=== PATIENT | female | born 1985 | race Caucasian/White ===

== ENCOUNTER 2021-08-30 08:53 | Outpatient (REF) | payer BC, SELFPAY ==
[2021-08-30 11:16] LABS: MANUAL DIFF FLAG NO
[2021-08-30 11:21] LABS: Basophils Percent Auto 0.8 % (0-2); Eosinophils Absolute Auto 0.2 X10*3/uL (0.0-0.4); Hematocrit 38.8 % (37.0-47.0); Hemoglobin 12.5 g/dl (12.0-16.0); Imm Gran Abs Auto 0.01 X10*3/uL (0.00-0.03); Imm Gran Pct Auto 0.3 % (0.0-0.4); Lymphocytes Absolute Auto 1.5 X10*3/uL (1.2-4.9); Lymphocytes Percent Auto 39.4 % (20-40); Mean Corpuscular HGB Conc 32.2 g/dl (31.0-35.0); Mean Corpuscular Hemoglobin 28.9 pg (27.0-33.0); Mean Corpuscular Volume 89.8 fL (80.0-98.0); Mean Platelet Volume 12.1 fL (9.4-12.3); Monocytes Absolute Auto 0.3 X10*3/uL (0.1-1.2); Neutrophils Absolute Auto 1.8 x10*3/uL (2.0-8.3); Neutrophils Percent Auto 47.5 % (45-73); Platelet Count 219 X10*3/uL (160-400); Red Blood Count 4.32 X10*6/uL (4.20-5.50); Red Cell Distribution Width 12.2 % (11.0-16.0); White Blood Count 3.7 X10*3/uL (4.8-10.8)
[2021-08-30 11:48] LABS: Alanine Aminotransferase 18 U/L (0-31); Albumin Level 4.4 g/dL (3.5-5.0); Alkaline Phosphatase 38 U/L (39-117); Anion Gap 12 (12-20); Aspartate Amino Transferase 16 U/L (5-31); Bilirubin Total 0.4 mg/dL (0.0-1.0); Blood Urea Nitrogen 14 mg/dL (9-16); Carbon Dioxide 24 mmol/L (22-29); Chloride 107 mmol/L (96-108); Cholesterol 224 mg/dL; Estimated Glomerular Filt Rate > 60; Glucose Fasting 87 mg/dL (60-99); HDL Cholesterol 65 mg/dL; LDL Cholesterol Calculated 143 mg/dl; Potassium 4.6 mmol/L (3.3-5.1); Sodium 138 mmol/L (135-145); Total Protein 7.2 g/dL (6.5-8.0); Triglycerides 83 mg/dL
[2021-08-30 11:59] LABS: TSH reflex Free T4 1.61 uIU/mL (0.32-4.0)
[2021-08-31 07:47] LABS: SARS COV2 IgG Positive (Negative)
[2021-09-04 17:21] LABS: Vitamin D 25-OH, D2 <4 ng/mL; Vitamin D 25-OH, D3 19 ng/mL; Vitamin D 25-OH, Total 19 ng/mL (30-100)
== END 2021-08-30 08:54 | disposition home or self-care (01) ==
LOC: HO.HMGCLDS 08:53
PROVIDERS: PCP Internal Medicine; Visit Provider Internal Medicine
DX: Z00.01 Encounter for general adult medical examination with abnormal findings (principal); U07.1 COVID-19
CPT/HCPCS: 36415; 80053; 80061; 82306; 84443; 85025; 86769

== ENCOUNTER 2023-03-06 07:48 | Outpatient (REF) | payer BC, SELFPAY ==
[2023-03-06 11:23] LABS: MANUAL DIFF FLAG NO
[2023-03-06 11:34] LABS: Basophils Absolute Auto 0.1 X10*3/uL (0.0-0.2); Basophils Percent Auto 1.1 % (0-2); Eosinophils Absolute Auto 0.2 X10*3/uL (0.0-0.4); Hematocrit 38.7 % (37.0-47.0); Hemoglobin 12.6 g/dl (12.0-16.0); Imm Gran Abs Auto 0.01 X10*3/uL (0.00-0.03); Imm Gran Pct Auto 0.2 % (0.0-0.4); Lymphocytes Percent Auto 36.7 % (20-40); Mean Corpuscular HGB Conc 32.6 g/dl (31.0-35.0); Mean Corpuscular Hemoglobin 29.4 pg (27.0-33.0); Mean Corpuscular Volume 90.4 fL (80.0-98.0); Mean Platelet Volume 12.3 fL (9.4-12.3); Monocytes Absolute Auto 0.4 X10*3/uL (0.1-1.2); Monocytes Percent Auto 7.2 % (2-11); Neutrophils Absolute Auto 2.8 x10*3/uL (2.0-8.3); Neutrophils Percent Auto 50.8 % (45-73); Platelet Count 216 X10*3/uL (160-400); Red Blood Count 4.28 X10*6/uL (4.20-5.50); Red Cell Distribution Width 12.2 % (11.0-16.0); White Blood Count 5.6 X10*3/uL (4.8-10.8)
[2023-03-06 12:10] LABS: Alanine Aminotransferase 17 U/L (0-31); Albumin Level 4.4 g/dL (3.5-5.0); Alkaline Phosphatase 43 U/L (39-117); Anion Gap 10 (12-20); Aspartate Amino Transferase 16 U/L (5-31); Bilirubin Total 0.3 mg/dL (0.0-1.0); Blood Urea Nitrogen 15 mg/dL (9-16); Calcium 9.2 mg/dL (8.4-10.2); Carbon Dioxide 26 mmol/L (22-29); Chloride 109 mmol/L (96-108); Cholesterol 208 mg/dL; Estimated Glomerular Filt Rate > 60; Glucose Random 89 mg/dL (60-115); HDL Cholesterol 57 mg/dL; LDL Cholesterol Calculated 132 mg/dl; Sodium 141 mmol/L (135-145); Total Protein 6.9 g/dL (6.5-8.0); Triglycerides 97 mg/dL
== END 2023-03-06 07:49 | disposition home or self-care (01) ==
LOC: HO.HMGCLDS 07:48
PROVIDERS: PCP Internal Medicine; Visit Provider Internal Medicine
DX: Z00.01 Encounter for general adult medical examination with abnormal findings (principal); Z13.220 Encounter for screening for lipoid disorders; M62.838 Other muscle spasm; Z20.2 Contact with and (suspected) exposure to infections with a predominantly sexual mode of transmission
CPT/HCPCS: 36415; 80053; 80061; 85025

== ENCOUNTER 2024-01-30 15:07 | Outpatient (AMB) | payer BC, SELFPAY ==
--- NOTE | 2024-01-30 15:10 | MHC.PC.OV ---
Vital Signs 01/30/24 15:11 Height 5 ft 2 in Weight 128 lb 8 oz BMI 23.5 BP 120/82 Blood Pressure Location Rt brachial Position Sitting Pulse 51 Pulse Source Pulse Oximeter Pulse Oximetry (%) 100 Oxygen Delivery Method Room Air Intake Visit Reasons: Annual Physical~ Allergies No Known Allergies Allergy (Verified 01/30/24 15:13) Medication List - Last Reconciled 01/30/24 by Astrid Guerrero MD [id number] 180 mg-10 mcg- 5.5 mg-150 mg (Immune Support (vit c, d and zinc)) caps PO magnesium oxide 250 mg PO DAILY Tobacco use date assessed: 01/30/24 Dental Screening Dental Screen Date: 01/30/24 Did you have a dental visit in the last 12 months?: Yes Did you have a dental problem in the last 6 months where you did not have access to dental care?: No Was dental information given to patient?: Patient has dentist HPI Annual Physical~ HPI Details Patient is a 38-year-old female came in today for her annual physical examination Continued to have cramping in her lower extremity off and on, magnesium is helping Last year I have appointment with OBGYN but patient never went This year she promised that she will go, referral placed for [facility], number provided to patient so she can call in book her own appointment Lab order placed to be done fasting Patient says that she has noticed she is having frequency of urination and would like to have a UA done as well. Follow-up 1 year for physical exam [facility] Social History Housing: House Patient Tobacco Use Status: Current everyday Tobacco user Tobacco use type: Cigarette Cigarettes Per Day: 3 Years Smoked: 10 plus years Packs per year/per ci.00 e-Cigarette/Vaping Use: Never Used Second Hand Smoke Exposure: Yes Current occupational status: employed Cognitive needs: No Hearing needs: No Vision needs: No Questionnaire PHQ-9 Over the last 2 weeks, how often have you been bothered by any of the following problems? 1. Little interest or pleasure in doing things: not at all 2. Feeling down, depressed, or hopeless: not at all 3. Trouble falling or staying asleep, or sleeping too much: not at all 4. Feeling tired or having little energy: not at all 5. Poor appetite or overeating: not at all 6. Feeling bad about yourself - or that you are a failure or have let yourself or your family down: not at all 7. Trouble concentrating on things, such as reading the newspaper or watching television: not at all 8. Moving or speaking so slowly that other people could have noticed. Or the opposite - being so fidgety or restless that you have been moving around a lot more than usual: not at all 9. Thoughts that you would be better off or of hurting yourself in some way: not at all Total score: 0 Depression Screening Interpretation: Negative Depression Screening Done: Yes 27246 - PHQ-9 Billing: Yes Source: Developed by Drs. James Hector, Lisa Santiago, Moose Patel and colleagues, with an educational reanna from [employer]. Thrive Questionnaire Date Thrive assessed: 01/30/24 I am a: Patient What is your living situation today?: I have a steady place to live Within the past 12 months, did the food you bought not last and you didn't have the money to get more?: Never true Within the past 12 months, did you worry whether your food would run out before you got money to buy more?: Sometimes True Do you have trouble paying for medicines?: No Do you have trouble getting transportation to medical appointments?: No Do you have trouble paying your heating and electricity bill?: No Do you have trouble taking care of your child, family member or friend?: No Do you have trouble with day-to-day activities such as bathing, preparing meals, shopping, managing finances, etc.?: No Are you currently unemployed and looking for a job?: No Are you interested in more education?: Yes Please select the resources that you would like help with: None Currently or been in a relationship where the following occur: no concerns reported THRIVE Score: 1 AUDIT C Alcohol Use Questionnaire (AUDIT-C) 1. How often do you have a drink containing alcohol?: Monthly or less 2. How many drinks containing alcohol do you have on a typical day when you are drinking?: 1 or 2 3. How often do you have six or more drinks on one occasion?: Never Total Score: 1 Score Reviewed/Action Taken: No CARMELA-7 AMB Questionnaire CARMELA-7 Date CARMELA - 7 assessed: 01/30/24 Feeling nervous, anxious, or on edge: 0 = Not at all Not being able to stop or control worryin = Not at all Worrying too much about different things: 1 = Several days Trouble relaxin = Not at all Being so restless that it is hard to sit still: 0 = Not at all Becoming easily annoyed or irritable: 0 = Not at all Feeling afraid as if something awful might happen: 1 = Several days Total CARMELA-7 score (0-4 normal; 5-9 mild; 10-14 moderate; 15-21 severe): 2 Source: Developed by Drs. James Hector, Lisa Santiago, Moose Patel and colleagues, with an educational reanna from [employer]. CARMELA-7 Assessment Billing CARMELA-7 Assessment Tool: CARMELA-7 Assessment 41021 Review of Systems Const Denies chills, Denies fever(s) and Denies headache(s) Eyes Denies blurry vision ENT Denies headache(s), Denies nasal discharge, Denies nasal obstruction, Denies odynophagia and Denies sinus pain Card Denies chest pain at rest and Denies chest pain with activity Resp Denies cough and Denies hemoptysis GI Denies diarrhea, Denies odynophagia, Denies vomiting and Denies hematemesis Reports as per HPI Musc Denies abnormal gait Skin/Breast Reports as per HPI Neuro Denies Neuro-related abnormal movements, Denies Abnormal speech present, Denies abnormal gait, Denies headache(s) and Denies Sensory deficit (Neuro) Psych Denies mood swings and Denies paranoia Endo Reports as per HPI Jace/Lymph Reports as per HPI Aller/Immun Reports as per HPI Physical exam (Primary Care) Vital Signs: Last Vital Signs Pulse 51 01/30/24 15:11 BP 120/82 01/30/24 15:11 Pulse Ox 100 01/30/24 15:11 Oxygen Delivery Method Room Air 01/30/24 15:11 BMI result Body Mass Index 23.5 Tobacco/Smoking Status: Tobacco use Status Tobacco use date assessed 01/30/24 01/30/24 15:17 Patient Tobacco Use Status Current everyday Tobacco 01/30/24 15:17 Tobacco use type Cigarette 01/30/24 15:17 e-Cigarette/Vaping Use Never Used 01/30/24 15:17 PHQ-9: PHQ-9 Score PHQ-9: Total score 0 01/30/24 15:38 Depression Screening Interpretation: Negative Thrive Assessment: Date of Thrive Assessment Date Thrive assessed 01/30/24 01/30/24 15:26 Currently or been in a relationship where the following occur: no concerns reported Const General: cooperative, comfortable and no acute distress Orientation/consciousness: patient oriented x3 HENMT Head: Yes normocephalic and Yes atraumatic Eyes General: appearance normal, both eyes and all related structures Pupils: Equal, round and reactive pupils present EOM: EOMs intact bilaterally Neck Neck: Yes supple and No lymphadenopathy Thyroid: Thyroid normal Lymphatic: no lymphadenopathy noted Chest Breast/axilla palpation: normal palpation of the breasts Resp Effort & Inspection: normal respiratory effort and able to speak in complete sentences Auscultation: clear to auscultation bilaterally Cardio Heart sounds: S1 normal heart sound present and S2 normal heart sound present GI Palpation (GI): Soft to palpation and nontender Auscultation: normal bowel sounds General: Yes no CVA tenderness Back/Spine/Pelvis Back: no CVA tenderness Skin General skin exam: elasticity normal and turgor normal Neuro General: patient oriented x3 and gait normal Cranial nerves: Yes Equal, round and reactive pupils present Speech: No Abnormal speech present Sensory Exam: No Sensory deficit (Neuro) Coordination: tandem gait normal and Romberg test negative Extrem General: Yes normal exam except as noted and No edema Assessment and Plan Assessment & Plan (1) Encounter for general adult medical examination with abnormal findings: Code(s): Z00.01 - Encounter for general adult medical examination with abnormal findings (2) Frequency of urination: Code(s): R35.0 - Frequency of micturition (3) Muscle cramping: Code(s): R25.2 - Cramp and spasm Plan Patient is a 38-year-old female came in today for her annual physical examination Continued to have cramping in her lower extremity off and on, magnesium is helping Last year I have appointment with OBGYN but patient never went This year she promised that she will go, referral placed for [facility], number provided to patient so she can call in book her own appointment Lab order placed to be done fasting Patient says that she has noticed she is having frequency of urination and would like to have a UA done as well. Follow-up 1 year for physical exam Orders: Orders Lipid Panel Today R35.0 - Frequency of micturition, Z00.01 - Encounter for general adult medical examination with abnormal findings UA CC w/rflx Micro + Cult Today R35.0 - Frequency of micturition, Z00.01 - Encounter for general adult medical examination with abnormal findings Complete Blood Count Auto Diff Today R35.0 - Frequency of micturition, Z00.01 - Encounter for general adult medical examination with abnormal findings Comprehensive [place]. Panel Fast Today R35.0 - Frequency of micturition, Z00.01 - Encounter for general adult medical examination with abnormal findings Magnesium Today R25.2 - Cramp and spasm Referrals [facility] Referral Z01.419 - Encounter for gynecological examination (general) (routine) without abnormal findings Coding Level of Care Code Est Pt Prev Care 18-39y(90646) Diagnoses Encounter for general adult medical examination with abnormal findings Z00.01 Frequency of urination R35.0 Muscle cramping R25.2 Additional Codes CARMELA-7 Assessment Billing - CARMELA-7 Assessment Tool: CARMELA-7 Assessment 26299 ([id number])
[2024-01-30 15:11] VITALS: BP 120/82; PULSE 51; O2SAT 100; BMI 23.5
== END 2024-01-30 16:33 | disposition home or self-care (01) ==
PROVIDERS: PCP Internal Medicine; Visit Provider Internal Medicine
DX: Z00.01 Encounter for general adult medical examination with abnormal findings (principal); R35.0 Frequency of micturition; R25.2 Cramp and spasm
CPT/HCPCS: 99395

== ENCOUNTER 2024-03-26 08:08 | Outpatient (REF) | payer BC, SELFPAY ==
[2024-03-26 10:30] LABS: MANUAL DIFF FLAG NO
[2024-03-26 10:36] LABS: Appearance Urine Clear; Color Urine Yellow; Glucose Urine UA Negative (Negative); Leukocyte Esterase Urine Trace (Negative); Nitrite Urine Negative (Negative); UMIC TRIGGER UACC YES; Urine Blood Trace (Negative); Urine Ketones Negative (Negative); Urine Protein Negative (Neg-Trace)
[2024-03-26 10:43] LABS: Bacteria Urine 2+ (None Seen); Hyaline Casts Urine 0-2 /LPF (0-2); WBC Urine 0-5 /HPF (0-5)
[2024-03-26 10:46] LABS: Basophils Absolute Auto 0.1 X10*3/uL (0.0-0.2); Basophils Percent Auto 1.3 % (0-2); Eosinophils Absolute Auto 0.2 X10*3/uL (0.0-0.4); Eosinophils Percent Auto 4.6 % (0-4); Hematocrit 36.9 % (37.0-47.0); Hemoglobin 12.1 g/dl (12.0-16.0); Imm Gran Abs Auto 0.01 X10*3/uL (0.00-0.03); Imm Gran Pct Auto 0.3 % (0.0-0.4); Lymphocytes Absolute Auto 1.5 X10*3/uL (1.2-4.9); Lymphocytes Percent Auto 38.6 % (20-40); Mean Corpuscular HGB Conc 32.8 g/dl (31.0-35.0); Mean Corpuscular Hemoglobin 29.5 pg (27.0-33.0); Mean Platelet Volume 11.7 fL (9.4-12.3); Monocytes Absolute Auto 0.3 X10*3/uL (0.1-1.2); Neutrophils Absolute Auto 1.8 x10*3/uL (2.0-8.3); Neutrophils Percent Auto 47.2 % (45-73); Platelet Count 207 X10*3/uL (160-400); Red Cell Distribution Width 12.2 % (11.0-16.0); White Blood Count 3.9 X10*3/uL (4.8-10.8)
[2024-03-26 11:40] LABS: Alanine Aminotransferase 18 U/L (0-31); Albumin Level 4.3 g/dL (3.5-5.0); Alkaline Phosphatase 36 U/L (39-117); Anion Gap 9 (12-20); Aspartate Amino Transferase 18 U/L (5-31); Bilirubin Total 0.3 mg/dL (0.0-1.0); Blood Urea Nitrogen 12 mg/dL (9-16); Carbon Dioxide 26 mmol/L (22-29); Chloride 110 mmol/L (96-108); Cholesterol 218 mg/dL (<200); Estimated Glomerular Filt Rate > 60; Glucose Fasting 85 mg/dL (60-99); HDL Cholesterol 63 mg/dL (>40); LDL Cholesterol Calculated 138 mg/dL (<100); Magnesium 2.1 mg/dL (1.6-2.6); Potassium 4.5 mmol/L (3.3-5.1); Sodium 140 mmol/L (135-145); Total Protein 6.8 g/dL (6.5-8.0); Triglycerides 88 mg/dL (<150)
== END 2024-03-26 08:09 | disposition home or self-care (01) ==
LOC: HO.HMGCLDS 08:08
PROVIDERS: PCP Internal Medicine; Visit Provider Internal Medicine
DX: Z00.01 Encounter for general adult medical examination with abnormal findings (principal); R35.0 Frequency of micturition; R25.2 Cramp and spasm
CPT/HCPCS: 36415; 80053; 80061; 81001; 83735; 85025

== ENCOUNTER 2024-03-29 10:32 | Outpatient (REF) | payer BC, SELFPAY ==
[2024-03-29 13:38] LABS: Appearance Urine Clear; Color Urine Yellow; Glucose Urine UA Negative (Negative); Leukocyte Esterase Urine Negative (Negative); Nitrite Urine Negative (Negative); PH 7.5 (5.0-9.0); Specific Gravity - Urine <= 1.005 (1.005-1.025); Urine Blood Negative (Negative); Urine Ketones Negative (Negative); Urine Protein Negative (Neg-Trace)
[2024-03-29 13:42] LABS: Bacteria Urine None Seen (None Seen); Hyaline Casts Urine 0-2 /LPF (0-2); RBC Urine 0-2 /HPF (0-2); Squamous Epithelial Cell Urine 0-2 /HPF (0-2); WBC Urine 0-5 /HPF (0-5)
== END 2024-03-29 10:33 | disposition home or self-care (01) ==
LOC: HO.HMGCLDS 10:32
PROVIDERS: PCP Internal Medicine; Visit Provider Internal Medicine
DX: R35.0 Frequency of micturition (principal)
CPT/HCPCS: 81001; 87086

== ENCOUNTER 2025-01-26 10:30 | Outpatient (REF) | payer OTHER, SELFPAY ==
--- OUTSIDE RECORDS SUMMARY | 2025-01-26 12:57 | XMS_ITS | Clinical Summary ---
Author Organization [facility] it Address [address] [place] [address] Care Team Providers Care Repairer Engine Production Name Role Phone Zee Duarte MD Primary Care Provider [phone] Surgical History Surgery Date Site/Laterality Comments OTHER [...] RESULTING AGENCY - 08/26/2018 8:26 AM EST [id number] THINPREP PAP, IMAGED: NEGATIVE FOR SQUAMOUS INTRAEPITHELIAL [...] Recently Relevant to Health Maintenance Care Teams Repairer Engine Production Relationship Specialty Start Date End Date Zee Duarte MD PCP - General Internal Medicine 06/04/18
[2025-01-26 13:20] LABS: MANUAL DIFF FLAG NO
[2025-01-26 13:34] LABS: Appearance Urine Clear; Color Urine Yellow; Glucose Urine UA Negative (Negative); Leukocyte Esterase Urine Negative (Negative); Nitrite Urine Negative (Negative); PH 5.5 (5.0-9.0); Urine Blood Negative (Negative); Urine Ketones Negative (Negative); Urine Protein Negative (Neg-Trace)
[2025-01-26 13:43] LABS: Basophils Percent Auto 0.8 % (0-2); Eosinophils Absolute Auto 0.2 X10*3/uL (0.0-0.4); Eosinophils Percent Auto 3.1 % (0-4); Hematocrit 37.6 % (37.0-47.0); Hemoglobin 12.8 g/dl (12.0-16.0); Imm Gran Abs Auto 0.02 X10*3/uL (0.00-0.03); Imm Gran Pct Auto 0.4 % (0.0-0.4); Lymphocytes Absolute Auto 1.6 X10*3/uL (1.2-4.9); Lymphocytes Percent Auto 32.8 % (20-40); Mean Corpuscular Hemoglobin 30.4 pg (27.0-33.0); Mean Corpuscular Volume 89.3 fL (80.0-98.0); Mean Platelet Volume 11.8 fL (9.4-12.3); Monocytes Absolute Auto 0.3 X10*3/uL (0.1-1.2); Monocytes Percent Auto 5.9 % (2-11); Neutrophils Absolute Auto 2.7 x10*3/uL (2.0-8.3); Platelet Count 216 X10*3/uL (160-400); Red Blood Count 4.21 X10*6/uL (4.20-5.50); Red Cell Distribution Width 12.5 % (11.0-16.0); White Blood Count 4.8 X10*3/uL (4.8-10.8)
[2025-01-26 14:03] LABS: Alanine Aminotransferase 33 U/L (0-31); Albumin Level 4.6 g/dL (3.5-5.0); Alkaline Phosphatase 37 U/L (39-117); Anion Gap 7 (12-20); Aspartate Amino Transferase 32 U/L (5-31); Bilirubin Total 0.2 mg/dL (0.0-1.0); Blood Urea Nitrogen 12 mg/dL (9-16); Calcium 9.3 mg/dL (8.4-10.2); Carbon Dioxide 25 mmol/L (22-29); Chloride 111 mmol/L (96-108); Estimated Glomerular Filt Rate > 60; Glucose Random 89 mg/dL (60-115); Potassium 4.1 mmol/L (3.3-5.1); Sodium 139 mmol/L (135-145); Total Protein 7.3 g/dL (6.5-8.0)
[2025-01-26 14:20] LABS: TSH reflex Free T4 2.28 uIU/mL (0.32-4.0)
[2025-01-27 06:58] LABS: LDL Cholesterol Direct 150 mg/dL (<100)
[2025-01-30 18:08] LABS: Vitamin D 25-OH, D2 <4 ng/mL; Vitamin D 25-OH, D3 30 ng/mL; Vitamin D 25-OH, Total 30 ng/mL (30-100)
== END 2025-01-26 10:31 | disposition home or self-care (01) ==
LOC: HO.HMGCLDS 10:30
PROVIDERS: PCP Internal Medicine; Visit Provider Internal Medicine
DX: Z00.01 Encounter for general adult medical examination with abnormal findings (principal); D70.4 Cyclic neutropenia; E55.9 Vitamin D deficiency, unspecified; R79.89 Other specified abnormal findings of blood chemistry
CPT/HCPCS: 36415; 80053; 81003; 82306; 83721; 84443; 85025; 96127; 99212; 99395

== ENCOUNTER 2025-01-26 10:30 | Outpatient (AMB) | payer OTHER, SELFPAY ==
[2025-01-26 10:32] VITALS: BP 118/68; PULSE 72; O2SAT 99; BMI 23.5
--- NOTE | 2025-01-26 10:32 | A.OFFPC_ITS ---
Vital Signs 01/26/25 10:32 Height 5 ft 2 in Weight 128 lb 8 oz BMI 23.5 BP 118/68 Blood Pressure Location Rt brachial Position Sitting Pulse 72 Pulse Source Pulse Oximeter Pulse Oximetry (%) 99 Oxygen Delivery Method Room Air Intake Visit Reasons: PE Allergies No Known Allergies Allergy (Verified 01/26/25 10:32) Medication List - Last Reconciled 01/26/25 by Astrid Guerrero MD [id number] 180 mg-10 mcg- 5.5 mg-150 mg (Immune Support (vit c, d and zinc)) caps PO magnesium oxide 250 mg PO DAILY valacyclovir mg PO Tobacco use date assessed: 01/26/25 Dental Screening Dental Screen Date: 01/26/25 Did you have a dental visit in the last 12 months?: Yes Did you have a dental problem in the last 6 months where you did not have access to dental care?: No Was dental information given to patient?: Patient has dentist HPI PE HPI Details Physical exam appointment - The patient is a 39-year-old female pr esenting for blood tests and OBGYN appointment follow-up. - Fluctuating low white blood cell count noted over past couple of years with specific mention of low counts in prior and recent lab tests. - Elevated cholesterol levels with LDL a t 138 mg/dL; patient has high HDL which is protective. - Previous diagnosis of Vitamin D defici ency in 2020, with follow-up tests planned. - Social cigar smoking, indicated to be three daily, primarily after meals. Health Maintenance - Discussion of necessity for periodic t etanus vaccination with a recommended interval of every 10 years. Patient declined - Need for follow-up on lipid levels, in cluding management of elevated LDL and protective high HDL. - Monitoring and follow-up testing for v itamin D levels. - Advice provided for OBGYN consultation including Pap smear and discussion regarding IUD. Patient Instructions - Complete blood tests today . - Perform urine test today as well. - Call Shy Luna's office directly for appointment scheduling instead of using online system. - Discuss IUD placement for contraceptio n with OBGYN. - Consider pharmacy for tetanus vaccinat ion after verification with insurance. 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 - Follow-up follow up for one-year physi praveen unless lab results indicate sooner need. Review of Systems - General: No fever no chills - Neurological: No headaches no dizzin ess - Ear nose throat: No sore throat no hearing difficulty no ear pain - Cardiovascular: No syncope, no chest pain, no palpitations - Gastrointestinal: No nausea vomiting or diarrhea - Endocrine: No polyuria polydipsia no heat intolerance - Genitourinary: No dysuria - Skin: No new complaints Physical Exam General: Cooperative, healthy appearing, comfortable, no acute distress Orientation: Patient oriented x3 Head: Normal to inspection Ears: Within normal limit visually Nose: Normal external nose present Face and sinus: Normal facial exam Eyes: Appearance normal, extraocular movement intact pupils reactive Neck: Normal visual inspection and supple Respiratory: Normal respiratory effort and able to speak in complete sentences. Clear to auscultation, no stridor Cardiovascular: S1 and S2 Breast exam benign GI: Normal to inspection. Soft to palpation and nontender Skin: Turgor normal, no acute findings Neuro: Patient oriented x3, motor sensory intact, balance intact, tandem pass Extremities: Normal to inspection [facility] Social History Housing: House Patient Tobacco Use Status: Current everyday Tobacco user Tobacco use type: Cigarette Cigarettes Per Day: 3 Years Smoked: 10 plus years e-Cigarette/Vaping Use: Never Used Second Hand Smoke Exposure: Yes Current occupational status: employed Cognitive needs: No Hearing needs: No Vision needs: No Questionnaire PHQ-9 Over the last 2 weeks, how often have you been bothered by any of the following problems? 1. Little interest or pleasure in doing things: not at all 2. Feeling down, depressed, or hopeless: not at all 3. Trouble falling or staying asleep, or sleeping too much: not at all 4. Feeling tired or having little energy: several days 5. Poor appetite or overeating: not at all 6. Feeling bad about yourself - or that you are a failure or have let yourself or your family down: not at all 7. Trouble concentrating on things, such as reading the newspaper or watching television: not at all 8. Moving or speaking so slowly that other people could have noticed. Or the opposite - being so fidgety or restless that you have been moving around a lot more than usual: not at all 9. Thoughts that you would be better off or of hurting yourself in some way: not at all Total score: 1 Depression Screening Interpretation: Negative Depression Screening Done: Yes 07630 - PHQ-9 Billing: Yes Source: Developed by Drs. James Hector, Lisa Santiago, Moose Patel and colleagues, with an educational reanna from [employer]. Thrive Questionnaire Date Thrive assessed: 01/26/25 I am a: Patient What is your living situation today?: I have a steady place to live Within the past 12 months, did the food you bought not last and you didn't have the money to get more?: I choose not to answer this question Within the past 12 months, did you worry whether your food would run out before you got money to buy more?: I choose not to answer this question Do you have trouble paying for medicines?: I choose not to answer this question Do you have trouble getting transportation to medical appointments?: No Do you have trouble paying your heating and electricity bill?: No Do you have trouble taking care of your child, family member or friend?: No Do you have trouble with day-to-day activities such as bathing, preparing meals, shopping, managing finances, etc.?: No Are you currently unemployed and looking for a job?: I choose not to answer this question Are you interested in more education?: Yes Please select the resources that you would like help with: Education Currently or been in a relationship where the following occur: I choose not to answer THRIVE Score: 0 AUDIT C Alcohol Use Questionnaire (AUDIT-C) 1. How often do you have a drink containing alcohol?: 2-4 times a month 2. How many drinks containing alcohol do you have on a typical day when you are drinking?: 3 or 4 3. How often do you have six or more drinks on one occasion?: Monthly Total Score: 5 Score Reviewed/Action Taken: Yes CARMELA-7 AMB Questionnaire CARMELA-7 Date CARMELA - 7 assessed: 01/30/24 Feeling nervous, anxious, or on edge: 0 = Not at all Not being able to stop or control worryin = Not at all Worrying too much about different things: 1 = Several days Trouble relaxin = Not at all Being so restless that it is hard to sit still: 0 = Not at all Becoming easily annoyed or irritable: 0 = Not at all Feeling afraid as if something awful might happen: 1 = Several days Total CARMELA-7 score (0-4 normal; 5-9 mild; 10-14 moderate; 15-21 severe): 2 Source: Developed by Drs. James Hector, Lisa Santiago, Moose Patel and colleagues, with an educational reanna from [employer]. Physical exam (Primary Care) Vital Signs: Last Vital Signs Pulse 72 01/26/25 10:32 BP 118/68 01/26/25 10:32 Pulse Ox 99 01/26/25 10:32 Oxygen Delivery Method Room Air 01/26/25 10:32 BMI result Body Mass Index 23.5 Tobacco/Smoking Status: Tobacco use Status Tobacco use date assessed 01/26/25 01/26/25 10:35 Patient Tobacco Use Status Current everyday Tobacco 01/26/25 10:35 Tobacco use type Cigarette 01/26/25 10:35 e-Cigarette/Vaping Use Never Used 01/26/25 10:35 PHQ-9: PHQ-9 Score PHQ-9: Total score 1 01/26/25 10:56 Depression Screening Interpretation: Negative Thrive Assessment: Date of Thrive Assessment Date Thrive assessed 01/26/25 01/26/25 10:35 Currently or been in a relationship where the following occur: I choose not to answer Coding Level of Care Code Tele Est Pt Level 3 (94080) Est Pt Prev Care 18-39y(71575) Diagnoses Encounter for general adult medical examination with abnormal findings Z00. 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 Vitamin D deficiency E55.9 Additional Codes PHQ-9 - 54464 - PHQ-9 Billing: Yes ([id number]) Assessment & Plan Assessment & Plan (1) Encounter for general adult medical examination with abnormal findings: Code(s): Z00.01 - Encounter for general adult medical examination with abnormal findings Category: Medical (2) Neutropenia: Code(s): D70.9 - Neutropenia, unspecified Category: Medical Qualifiers: Neutropenia type: cyclic Qualified Code(s): D70.4 - Cyclic neutropenia (3) Vitamin D deficiency: Code(s): E55.9 - Vitamin D deficiency, unspecified Category: Medical Plan Physical exam appointment - The patient is a 39-year-old female presenting for blood tests and OBGYN appointment follow-up. - Fluctuating low white blood cell count noted over past couple of years with specific mention of low counts in prior and recent lab tests. - Elevated cholesterol levels with LDL at 138 mg/dL; patient has high HDL which is protective. - Previous diagnosis of Vitamin D deficiency in 2020, with follow-up tests planned. - Social cigar smoking, indicated to be three daily, primarily after meals. Health Maintenance - Discussion of necessity for periodic tetanus vaccination with a recommended interval of every 10 years. Patient declined - Need for follow-up on lipid levels, including management of elevated LDL and protective high HDL. - Monitoring and follow-up testing for vitamin D levels. - Advice provided for OBGYN consultation including Pap smear and discussion regarding IUD. Patient Instructions - Complete blood tests today . - Perform urine test today as well. - Call Shy Luna's office directly for appointment scheduling instead of using online system. - Discuss IUD placement for contraception with OBGYN. - Consider pharmacy for tetanus vaccination after verification with insurance. 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 - Follow-up follow up for one-year physical unless lab results indicate sooner need. Orders: Orders Complete Blood Count Auto Diff Today D70.9 - Neutropenia, unspecified, E55.9 - Vitamin D deficiency, unspecified, R79.89 - Other specified abnormal findings of blood chemistry, Z00.01 - Encounter for general adult medical examination with abnormal findings Comprehensive Met. Panel Today D70.9 - Neutropenia, unspecified, E55.9 - Vitamin D deficiency, unspecified, R79.89 - Other specified abnormal findings of blood chemistry, Z00.01 - Encounter for general adult medical examination with abnormal findings Vitamin D 25-OH (D2 and D3) Today D70.9 - Neutropenia, unspecified, E55.9 - Vitamin D deficiency, unspecified, R79.89 - Other specified abnormal findings of blood chemistry, Z00.01 - Encounter for general adult medical examination with abnormal findings UA CC w/rflx Micro + Cult Today D70.9 - Neutropenia, unspecified, E55.9 - Vitamin D deficiency, unspecified, R79.89 - Other specified abnormal findings of blood chemistry, Z00.01 - Encounter for general adult medical examination with a bnormal findings LDL Cholesterol Direct Today D70.9 - Neutropenia, unspecified, E55.9 - Vitamin D deficiency, unspecified, R79.89 - Other specified abnormal findings of blood chemistry, Z00.01 - Encounter for general adult medical examination with abnormal findings TSH reflex Free T4 Today D70.9 - Neutropenia, unspecified, E55.9 - Vitamin D deficiency, unspecified, R79.89 - Other specified abnormal findings of blood chemistry, Z00.01 - Encounter for general adult medical examination with abnormal findings Referrals [employer] Referral Z01.419 - Encounter for gynecological examination (general) (routine) without abnormal findings Medications: New cholecalciferol (vitamin D3) 25 mcg PO DAILY 90 days 90 caps 1RF
--- OUTSIDE RECORDS SUMMARY | 2025-01-26 12:00 | XMS_ITS | Clinical Summary ---
Author Organization [facility] it Address [address] [place] [address] Care Team Providers Care Feltmaker And Weigher Name Role Phone Zee Duarte MD Primary Care Provider Surgical History Surgery Date Site/Laterality Comments OTHER SURGICAL HISTORY PROCEDURE: DENIES PREVIOUS SURGERY Medical History Medical History Date Comments Tobacco use 06/25/2018 DX:Tobacco use Borderline hypercholesterolemia 07/08/2018 DX:Borderline hypercholesterolemia Family History Medical History Relation Name Comments Heart attack Father Colon cancer Maternal Grandmother early 8 0s Relation Name Status Comments Father Maternal Grandmother Mother Alive Social History Tobacco Use Types Packs/Day Years Used Date Smoking Tobacco: Every Day Cigarettes 0.5 16.6 Started: 06/25/2008 Smokeless Tobacco: Never Alcohol Use Standard Drinks/Week Comments Yes 0 (1 standard drink = 0.6 oz pur e alcohol) Comments Unknown Sex and Gender Information Value Date Recorded Sex Assigned at Not on file Legal Sex Female 10:21 PM EST Gender Identity Not on file Sexual Orientation Not on file Obstetrics History Plan of Treatment Health Maintenance Due Date Last Done Comments DTaP,Tdap,and Td Vaccines (1 - Tdap) 2005 Hepatitis B Vaccines (1 of 3 - 19+ 3-dose series) 2005 Cervical Cancer Screening: P ap Smear 08/21/2021 08/21/2018 COVID-19 Vaccine ( - 2023-2 5 season) 2024 Influenza Vaccine (#1) 2024 HIB Vaccines Aged Out No longer eligi ble based on patient's age to complete this topic HPV Vaccines Aged Out No longer eligi ble based on patient's age to complete this topic Hepatitis A Vaccines Aged Out No long er eligible based on patient's age to complete this topic IPV Vaccines Aged Out No longer eligi ble based on patient's age to complete this topic MMR Vaccines Aged Out No longer eligi ble based on patient's age to complete this topic Meningococcal ACWY Vaccine Aged Out N o longer eligible based on patient's age to complete this topic Meningococcal B Vaccine Aged Out No l onger eligible based on patient's age to complete this topic Pneumococcal Vaccine: Pediat rics (0 to 5 Years) and At-Risk Patients (6 to 64 Years) Aged Out No longer eligi ble based on patient's age to complete this topic RSV Immunization Patients Un ina 20 months Aged Out No longer eligible b ased on patient's age to complete this topic Varicella Vaccines Aged Out No longer eligible based on patient's age to complete this topic Procedures Procedure Name Priority Date/Time Associated Diagnosis Comments PAP SMEAR Routine 08/21/2018 from Last 3 Months or Most Recently Relevant to Health Maintenance Results * Pap smear (08/21/2018) 08/21/2018 Narrative HISTORICAL TESTING LAB RESULTING AGENCY - 08/26/2018 8:26 AM EST [id number] THINPREP PAP, IMAGED: NEGATIVE FOR SQUAMOUS INTRAEPITHELIAL LESION AND MALIGNANCY . MARIE LOPEZ(ASCP) (CASE ELECTRONICALLY SIGNED 08 25 2018) RESULT OF APTIMA HIGH RISK HPV ASSAY: HIGH RISK HPV: ??NEGATIVE (SEROTYPES 16,18,31,33,35,39,45,51,52,56,58,59,66,68) COMPLETED ON 2018-08-25 ADEQUACY: SATISFACTORY ENDOCERVICAL/TRANSFORMATION ZONE COMPONENT PRESENT. SOURCE: THINPREP PAP HPV ANY DX: ??REFLEX 16 AND 18, CERVICAL, IMAGED: CLINICAL INFORMATION: HPV ANY DIAGNOSIS. Z12.4, Z01.419 us Annamarie Hastings CNElenita LAB CYTOLOGY ORDERABLES Final R esult HISTORICAL TESTING LAB RESULTING AGENCY from Last 3 Months or Most Recently Relevant to Health Maintenance Care Teams Feltmaker And Weigher Relationship Specialty Start Date End Date Zee Duarte MD PCP - General Internal Medicine 06/04/18
--- OUTSIDE RECORDS SUMMARY | 2025-01-26 12:00 | XMS_ITS | Data Portability ---
Author Organization [place] - [facility], [facility] Address [id number] [place] [address] Assessment No assessment recorded. Plan of Treatment Reminders Order Date Submit Date Provider Last Modified By Organization Details Last Modified Time Details Appointments None record ed. Lab pap, IG + HPV 020 11/18/19 [facility], [address] [place], [address] 0 09:01:06 Referral None record ed. Procedures None record ed. Surgeries None record ed. Imaging None record ed. Medication Orders None record ed. Patient TargetsNo targets recorded. Patient Instructions Encounter Date Encounter Id Patient Instructions Last Modified By Organization Details Last Modified Time 11/18/2019 [id number] Patient presents for a well woman exam. Her history is unremarkable and her exam is normal. She has been counseled regarding Pap smear screening as per guidelines of every three years for cytology review with high risk HPV testing. She has been counseled regarding control and safe sex as well as monthly self-breast exams. She was been told to reschedule a well woman Scientific Programmer Analyst exam in one year and to call us with any question or concerns regarding her health and welfare. [email or web address] Not available 11/18/2019 14:59:19 Reason for Referral None Reported. Results Created Date Observation Date Name Description Value Unit Range Abnormal Flag Note LastModifiedBy Organization Detail LastModifiedTime 11/18/19 20 11/18/2019 pap, IG + HPV report Report Final Gynec ologi praveen Cytol ogy Repor t ----- ----- ----- ----- ----- ----- ----- ----- ----- ----- ----- ----- ThinP rep Pap Test, HPV Scree n, Refle x HPV Genot ype SPECI MEN ADEQU ACY: SATIS FACTO RY FOR EVALU ATION ; ENDOC ERVIC AL/TR ANSFO RMATI ON ZONE COMPO NENT PRESE NT. INTER PRETA TION: NEGAT MARTHA FOR INTRA EPITH ELIAL RIZWAN N OR GITA GARCIA . Elect bandar Arreguin d: Jerry Almaguer, MARIE (ASCP ) ----- ----- ----- ----- ----- ----- ----- ----- ----- ----- ----- ----- CLINI PRAVEEN INFOR SHERMAN N: LMP: NG Speci men Sourc e: Cervi x, Endoc ervix HPV RESUL TS: HPV mRNA E6/E7 [id number] Appro shi: 11/19 Negat martha REF RANGE : Negat martha CPT Codes : 29597 ICD Codes : Z01.[address] [facility] [address] [place], [address] 11/23/2019 09:01:06 11/18/19 20 11/18/2019 HPV DNA, high- risk HPV MRNA E6/E7 Negati ve negati ve APTIM A HPV assay detec ts 14 high risk HPV types (HPV 16,18 ,31,3 3,35, 39,45 ,51,5 2,56, 58,59 ,66,6 8). The assay is FDA appro shi for testi ng ThinP rep liqui d Pap vials but not FDA appro shi for detec ting HPV in SureP ath liqui d Pap speci mens. In-ho use valid ation has shown the assay can detec t all HPV types from this sourc e Not Available [facility] [address] [place], [address] 11/23/2019 09:03:31 Result Notes None recorded. Medical Equipment None Reported. Allergies Allergen ID Allergen Name Allergen Category Reaction Reaction Severity Criticality Documentation Date Start Date Code Code System Note Provider Name and Address Organization Details Recorded Time [id number] orange food,medi cation Not available Not available Not available 11/18/2019 [id number] UNK Ashwini garcia, [facility] 0 15:02:17 Medications Name Sig Start Date Stop Date Status Note LastModified by Organization Details LastModified Time magnesium active Not Available Not Dory ilable Not Available One-A-Day Womens Formula active Not Available Not Available Not Available Vitals Date Recorded Body height Body mass index (BMI) Body weight Systolic blood pressure Diastolic blood pressure Provider Name and Address Organization Details Last Updated DateTime 11/18/2019 156.21 cm 23.2 kg/m2 46650.05 g 118 mm[Hg] 78 mm[Hg] Ashwini Ma [facility] 0 15:05:28 Social History Question Answer Notes LastModified by Organizat ion Details LastModified Time Tobacco Smoking Status Current Every Day Smoker Ashwini garcia, [facility] 11/18/2019 15:02:52 What Is Your Level Of Alcohol Consumption? Occasional [email or web address] Information not available 11/18/2019 Do You Have Any Children? No [email or web address] Information not available 11/18/2019 Does Your Partner Physically Hurt You Or Threaten To Hurt You? No [email or web address] Information not available 11/18/2019 Has Your Partner Forced You To Have Sex Or Perform Sex Acts When You Did Not Want To? No Information not available 11/18/2019 Does Your Partner Insult, Scream At Or Talk Down To You? No [email or web address] Information not available 11/18/2019 Does Your Partner Control You Or Any Part Of Your Life? No [email or web address] Information not available 11/18/2019 Are You Afraid Of Your Partner? No [email or web address] Information not available 11/18/2019 Drug Use? No [email or web address] Information no t available 11/18/2019 Do You Feel Safe At Home? Yes [email or web address] Information not available 11/18/2019 What Was The Date Of Your Most Recent Tobacco Screening? 11/18/2019 Information not available 11/18/2019 How Much Tobacco Do You Smoke? 0.25 PPD [email or web address] Information not available 11/18/2019 Sex: Unknown Functional Status None recorded. Mental Status None recorded. Family History Relationship Description Onset Age of this Age Resolved Age Notes LastModified by Organization Details LastModified Time Mother Hypertensive disorder [email or web address] Not available 2019 15:30:45 Father Heart disease [email or web address] Not available 2019 15:30:54 Father Gastric hemorrhage 75 [email or web address] Not available 11/18 15:31:08 Medical History No medical history recorded. Gynecological History Statement/Question Response Abnormal Pap N Current Control Method None Flow Moderate Frequency of Cycle (Q days) 26 Date of LMP 11/14/2019 Breast Biopsy N IPV Screen Done 11/18/2019 Sexually Active? Y Duration of Flow (days) 5 Obstetrics History GPAL:G 0 P 0 0 0 0 Past Encounters Encounter ID Performer Location Encounter Start Date Encounter Closed Date Diagnosis/Indication Diagnosis SNOMED-CT Code Diagnosis ICD10 Code Diagnosis Note [id number] MIRYAM KRAFT DO [facility] [address] [place] [address] 11/18/2019 14:54:27 11/19/2019 09:02:48 Gynecologic examination 67149617 Z01.419 Pap with HPV done Continue [facility] Concerns Section Related Observation LastModified by Organization Detai ls LastModified Time None Recorded Concern Status LastModified by Organization Details LastModified Time None Recorded Advance Directives Directive None Recorded Payers Encounter Date Sequence Insurance Name Policy Number Policy Arroyo Covered Member ID Arroyo Member ID Guarantor Name 11/18/2019 1 [facility] [id number] Stalin Zaragoza [id number] Mell Zaragoza Notes Date Note Type Note Provider Name and Address Organization Details Recorded Time 11/18/2019 text/html [facility] Annual GYNReported bypatient.Notes:Do ing well. Moved to the from [facility] ~ 2 years ago for her . Menses q 26 days. Not using anything for contraception. Would welcome . Pt with h/o cervical erosion . Had the area lasered ~ 10 years ago. Did not have an abnormal pap per pt. MIRYAM KRAFT DO [address] [facility], [address], [place], [address], [place] [facility] 11/18/2019 15:50:30 OBGyn Episode No OBEpisode recorded.
== END 2025-01-26 10:58 | disposition home or self-care (01) ==
LOC: HO.HMCC 10:31
PROVIDERS: PCP Internal Medicine; Visit Provider Internal Medicine
DX: Z00.01 Encounter for general adult medical examination with abnormal findings (principal); D70.4 Cyclic neutropenia; E55.9 Vitamin D deficiency, unspecified; R79.89 Other specified abnormal findings of blood chemistry

== ENCOUNTER 2025-08-24 11:07 | Outpatient (AMB) | payer OTHER, SELFPAY ==
[2025-08-24 11:18] VITALS: BP 116/70; PULSE 70; O2SAT 98; BMI 23.4
--- NOTE | 2025-08-24 11:18 | A.OFFPC_ITS ---
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 Collection Allergies No Known Allergies Allergy (Verified 08/24/25 11:25) Medication List - Last Reconciled 08/24/25 by Astrid Guerrero MD [id number] 180 mg-10 mcg- 5.5 mg-150 mg (Immune Support (vit c, d and zinc)) caps PO cholecalciferol (vitamin D3) 25 mcg PO DAILY 90 days magnesium oxide 250 mg PO DAILY valacyclovir mg PO Tobacco use date assessed: 01/26/25 Dental Screening Dental Screen Date: 01/26/25 HPI REAL ESTATE OPERATIONS MANAGER Swab Collection HPI Details History of Present Illness The patient is a 40-year-old female presenting to discuss a new gynecologic referral. Need for Gynecological Care: - The patient is seeking a new referral for gynecological care after her appointments were rescheduled five times by the previous office. - Her prior referral from January was cons idered too old. - Her last Pap smear was in 2020 in [facility] and was normal. - The patient states she is HPV Neg and is in a monogamous relationship. Abnormal Lab Findings: - Blood tests from January showed slightly elevated liver enzymes and an LDL of 1 50. - Her kidney function was noted to be in tact. Tobacco Use: - The patient reports she stopped smokin g around January or February. - She is concerned about weight gain fro m nervous eating since quitting. Herpes Labialis: - The patient reports recurrent cold sor es on her lips. - Outbreaks are triggered by dental visi ts, weather changes, and travel. - She notes that Abreva is not effective for her. - She has previously used a medication c alled Gerpivir in [facility]. Medical History: - Elevated liver enzymes diagnosed in ril - Hyperlipidemia with LDL of 150 recorde d in January - Recurrent herpes labialis - Tobacco use disorder, in remission sin ce Social History: - Education: Currently attending college . - Nutrition: Reports nervous eating lead ing to weight gain after smoking cessation. Problem List - Elevated liver enzymes - Hyperlipidemia - Recurrent herpes labialis - Tobacco use disorder, in remission Plan - A new referral will be placed for the patient to see a gymnastics coach or instructor at [facility]. - An order for fasting blood work, inclu ding repeat liver enzymes and a cholesterol panel, will be placed for the patient to complete before her upcomin g physical exam in January. - A prescription for mint-flavored nicot ine gum will be sent to the pharmacy to assist with smoking cessation and manage cravings associated with weight gain. - A prescription for valacyclovir will b e sent, with instructions to take two tablets in the morning and two tablets 12 hours later for one day only as soon as symptoms of a cold sore appear. - The patient will continue taking her v itamin D supplement. - The patient is scheduled for a follow- up physical exam in January and will confirm her attendance based on her college schedule. Review of Systems - General: No fever no chills - Neurological: No headaches no dizziness - Ear nose throat: No sore throat no hearing difficulty no ear pain - Cardiovascular: No syncope, no chest pain, no palpitations - Gastrointestinal: No nausea vomiting or diarrhea - Endocrine: No polyuria polydipsia no heat intolerance - Genitourinary: No dysuria , no blood in urine Physical Exam - General: No acute distress - HEENT: No acute findings - Neck: Supple - Respiratory system: Able to talk in f ull sentences, no audible wheeze - Cardiovascular: S1-S2 regular in rate and rhythm - Gastrointestinal: No pain - Extremities: No new findings - CRITICAL POWER TECHNICIAN: Alert awake oriented x3 motor in tact - Skin: Normal turgor [facility] Surgical History No pertinent past surgical history Social History Housing: House Patient Tobacco Use Status: Current everyday Tobacco user Tobacco use type: Cigarette Cigarettes Per Day: 3 Years Smoked: 10 plus years Packs per year/per ci.00 e-Cigarette/Vaping Use: Never Used Second Hand Smoke Exposure: Yes Current occupational status: employed Cognitive needs: No Hearing needs: No Vision needs: No Questionnaire Thrive Questionnaire Date Thrive assessed: 01/26/25 I am a: Patient What is your living situation today?: I have a steady place to live Within the past 12 months, did the food you bought not last and you didn't have the money to get more?: I choose not to answer this question Within the past 12 months, did you worry whether your food would run out before you got money to buy more?: I choose not to answer this question Do you have trouble paying for medicines?: I choose not to answer this question Do you have trouble getting transportation to medical appointments?: No Do you have trouble paying your heating and electricity bill?: No Do you have trouble taking care of your child, family member or friend?: No Do you have trouble with day-to-day activities such as bathing, preparing meals, shopping, managing finances, etc.?: No Are you currently unemployed and looking for a job?: I choose not to answer this question Are you interested in more education?: Yes Please select the resources that you would like help with: Education Currently or been in a relationship where the following occur: I choose not to answer THRIVE Score: 0 CARMELA-7 AMB Questionnaire CARMELA-7 Date CARMELA - 7 assessed: 01/30/24 Source: Developed by Drs. James Hector, Lisa Santiago, Moose Patel and colleagues, with an educational reanna from [employer]. Physical exam (Primary Care) Vital Signs: Last Vital Signs Pulse 70 08/24/25 11:18 BP 116/70 08/24/25 11:18 Pulse Ox 98 08/24/25 11:18 BMI result Body Mass Index 23.4 Tobacco/Smoking Status: Tobacco use Status Tobacco use date assessed 01/26/25 08/24/25 11:21 Patient Tobacco Use Status Current everyday Tobacco 08/24/25 11:21 Tobacco use type Cigarette 08/24/25 11:21 e-Cigarette/Vaping Use Never Used 08/24/25 11:21 Thrive Assessment: Date of Thrive Assessment Date Thrive assessed 01/26/25 08/24/25 11:21 Currently or been in a relationship where the following occur: I choose not to answer Coding Level of Care Code Est Pt Level 4 (06762) Diagnoses LFT elevation R79.89 Recurrent herpes labialis B00.1 Cigarette nicotine dependence without complication F17.210 Nicotine product type: cigarettes Substance use status: uncomplicated Lipid disorder E78.9 Vitamin D deficiency E55.9 Assessment & Plan Assessment & Plan (1) LFT elevation: Code(s): R79.89 - Other specified abnormal findings of blood chemistry Category: Medical (2) Recurrent herpes labialis: Code(s): B00.1 - Herpesviral vesicular dermatitis Category: Medical (3) Nicotine dependence: Code(s): F17.200 - Nicotine dependence, unspecified, uncomplicated Category: Medical Qualifiers: Nicotine product type: cigarettes Substance use status: uncomplicated Qualified Code(s): F17.210 - Nicotine dependence, cigarettes, uncomplicated (4) Lipid disorder: Code(s): E78.9 - Disorder of lipoprotein metabolism, unspecified Category: Medical (5) Vitamin D deficiency: Code(s): E55.9 - Vitamin D deficiency, unspecified Category: Medical Plan Need for Gynecological Care: - The patient is seeking a new referral for gynecological care after her appointments were rescheduled five times by the previous office. - Her prior referral from January was considered too old. - Her last Pap smear was in 2020 in [facility] and was normal. - The patient states she is HPV Neg and is in a monogamous relationship. Abnormal Lab Findings: - Blood tests from January showed slightly elevated liver enzymes and an LDL of 150. - Her kidney function was noted to be intact. Tobacco Use: - The patient reports she stopped smoking around January or February. - She is concerned about weight gain from nervous eating since quitting. Herpes Labialis: - The patient reports recurrent cold sores on her lips. - Outbreaks are triggered by dental visits, weather changes, and travel. - She notes that Abreva is not effective for her. - She has previously used a medication called Gerpivir in [facility]. Medical History: - Elevated liver enzymes diagnosed in January - Hyperlipidemia with LDL of 150 recorded in January - Recurrent herpes labialis - Tobacco use disorder, in remission since Social History: - Education: Currently attending college. - Nutrition: Reports nervous eating leading to weight gain after smoking cessation. Problem List - Elevated liver enzymes - Hyperlipidemia - Recurrent herpes labialis - Tobacco use disorder, in remission Plan - A new referral will be placed for the patient to see a gymnastics coach or instructor at [facility]. - An order for fasting blood work, including repeat liver enzymes and a cholesterol panel, will be placed for the patient to complete before her upcoming physical exam in January. - A prescription for mint-flavored nicotine gum will be sent to the pharmacy to assist with smoking cessation and manage cravings associated with weight gain. - A prescription for valacyclovir will be sent, with instructions to take two tablets in the morning and two tablets 12 hours later for one day only as soon as symptoms of a cold sore appear. - The patient will continue taking her vitamin D supplement. - The patient is scheduled for a follow-up physical exam in January and will confirm her attendance based on her college schedule. Orders: Orders Vitamin D 25-OH (D2 and D3) 08/24/25 B00.1 - Herpesviral vesicular dermatitis, D70.4 - Cyclic neutropenia, E55.9 - Vitamin D deficiency, unspecified, R79.89 - Other specified abnormal findings of blood chemistry Vitamin B12 08/24/25 B00.1 - Herpesviral vesicular dermatitis, D70.4 - Cyclic neutropenia, E55.9 - Vitamin D deficiency, unspecified, R79.89 - Other specified abnormal findings of blood chemistry Complete Blood Count Auto Diff 08/24/25 B00.1 - Herpesviral vesicular dermatitis, D70.4 - Cyclic neutropenia, E55.9 - Vitamin D deficiency, unspecified, R79.89 - Other specified abnormal findings of blood chemistry Comprehensive [place]. Panel Fast 08/24/25 B00.1 - Herpesviral vesicular dermatitis, D70.4 - Cyclic neutropenia, E55.9 - Vitamin D deficiency, unspecified, R79.89 - Other specified abnormal findings of blood chemistry Lipid Panel 08/24/25 B00.1 - Herpesviral vesicular dermatitis, D70.4 - Cyclic neutropenia, E55.9 - Vitamin D deficiency, unspecified, R79.89 - Other specified abnormal findings of blood chemistry TSH reflex Free T4 08/24/25 B00.1 - Herpesviral vesicular dermatitis, D70.4 - Cyclic neutropenia, E55.9 - Vitamin D deficiency, unspecified, R79.89 - Other specified abnormal findings of blood chemistry Referrals DEEP SUBMERGENCE VEHICLE OPERATOR Referral Z01.419 - Encounter for gynecological examination (general) (routine) without abnormal findings Medications: New nicotine (polacrilex) (Nicorette) 2 mg buccal Q2H 20 ea 2RF Mint flavor valacyclovir 1,000 mg PO BID 60 tabs 0RF 30 days
--- OUTSIDE RECORDS SUMMARY | 2025-08-24 13:25 | XMS_ITS | Clinical Summary ---
Author Organization [facility] it Address [address] [place] [address] Care Team Providers Care Senior Project Leader/Team Lead Name Role Phone Zee Duarte MD Primary [...] Date Smoking Tobacco: Every Day Cigarettes 0.5 17.2 Started: 06/25/2008 Smokeless Tobacco: Never Alcohol Use [...] of 3 - 19+ 3-dose series) 2005 HPV Vaccines (1 - 3-dose SCD M series) 2013 Cervical Cancer Screening: P ap Smear 08/21/2021 08/21/2018 Depression Screening 10/20/2024 COVID-19 Vaccine ( - 2023-2 5 season) 2025 Influenza Vaccine (#1) 2025 RSV Immunization Adult Patie nts (1 - 1-dose 75+ series) 2061 HIB Vaccines Aged Out No longer eligi [...] 5 Years) and At-Risk Patients (6 to 49 Years) Aged Out No longer eligi ble [...] RESULTING AGENCY - 08/26/2018 8:26 AM EST [id number] THINPREP PAP, IMAGED: NEGATIVE FOR SQUAMOUS INTRAEPITHELIAL LESION AND MALIGNANCY . MARIE LOPEZ(ASCP) (CASE ELECTRONICALLY SIGNED 08 25 2018) RESULT OF APTIMA HIGH RISK HPV ASSAY: HIGH RISK HPV: NEGATIVE (SEROTYPES 16,18,31,33,35,39,45,51,52,56,58,59,66,68) COMPLETED ON 2018-08-25 ADEQUACY: SATISFACTORY ENDOCERVICAL/TRANSFORMATION ZONE COMPONENT PRESENT. SOURCE: THINPREP PAP HPV ANY DX: REFLEX 16 AND 18, CERVICAL, IMAGED: CLINICAL INFORMATION: HPV ANY DIAGNOSIS. Z12.4, Z01.419 us Annamarie [facility] CYTOLOGY ORDERABLES Final R esult HISTORICAL TESTING LAB RESULTING AGENCY from Last 3 Months or Most Recently Relevant to Health Maintenance Care Teams Senior Project Leader/Team Lead Relationship Specialty Start Date End Date Zee Duarte MD PCP - General Internal Medicine 06/04/18
== END 2025-08-24 11:54 | disposition home or self-care (01) ==
LOC: HO.HMCC 11:08
PROVIDERS: PCP Internal Medicine; Visit Provider Internal Medicine
DX: R79.89 Other specified abnormal findings of blood chemistry (principal); B00.1 Herpesviral vesicular dermatitis; F17.210 Nicotine dependence, cigarettes, uncomplicated; E78.9 Disorder of lipoprotein metabolism, unspecified; E55.9 Vitamin D deficiency, unspecified

== ENCOUNTER → 2025-08-24 11:07 | Outpatient (BNVA) | payer OTHER, SELFPAY | PROVIDERS: PCP Internal Medicine; Visit Provider Internal Medicine | DX: R74.8 Abnormal levels of other serum enzymes (principal); B00.1 Herpesviral vesicular dermatitis; R79.89 Other specified abnormal findings of blood chemistry; E78.9 Disorder of lipoprotein metabolism, unspecified; E55.9 Vitamin D deficiency, unspecified; D70.4 Cyclic neutropenia; F17.210 Nicotine dependence, cigarettes, uncomplicated | CPT/HCPCS: 99212 ==